=== PATIENT | female | born 1995 | race Two or more races ===

== ENCOUNTER 2023-03-04 11:07 | Emergency (ER) | payer MEDICAID ==
[~2023-03-04] VITALS: Ht 167.6 cm; Wt 75.8 kg
[2023-03-04 11:39] VITALS: BP 136/76
[2023-03-04 11:48] LABS: Urine Bacteria NONE SEEN /hpf (None Seen); Urine Blood Negative /uL (Negative); Urine Mucus FEW (None Seen); Urine Specific Gravity 1.027 (1.001-1.035); Urine WBC <1 /hpf (0 - 5)
[2023-03-04 12:41] LABS: Basophils # (auto) 0.1 10 ^3/uL (0-0.2); Basophils % (auto) 1.1 % (0.0-2.0); Eosinophils # (auto) 0.1 10 ^3/uL (0-0.8); Eosinophils % (auto) 1.9 % (0.0-7.0); Hematocrit 42.2 % (36.0-46.0); Lymphocytes # (auto) 1.9 10 ^3/uL (0.4-5.4); Lymphocytes % (auto) 29.8 % (10.0-50.0); Mean Corpuscular Hemoglobin 29.8 pg (28.0-32.0); Mean Corpuscular Hgb Conc. 33.2 g/dL (32.0-36.0); Mean Corpuscular Volume 89.7 fL (80.0-100.0); Monocytes # (auto) 0.4 10 ^3/uL (0-1.3); Monocytes % (auto) 5.9 % (0.0-12.0); Neutrophils # (auto) 3.9 10 ^3/uL (1.6-8.6); Neutrophils % (auto) 61.3 % (37.0-80.0); Red Cell Distribution Width 13.7 % (11.8-14.3); White Blood Cell 6.3 10^3/uL (4.4-10.8)
[2023-03-04] MEDS ORDERED: NAPR-746 PO (13:28)
== END 2023-03-04 13:50 | disposition home or self-care (01) ==
LOC: ER 11:07
DX: N93.8 Other specified abnormal uterine and vaginal bleeding (principal); N83.291 Other ovarian cyst, right side; Z32.02 Encounter for pregnancy test, result negative; Z98.51 Tubal ligation status; Z88.0 Allergy status to penicillin; Z88.6 Allergy status to analgesic agent
CPT/HCPCS: 36415; 76856; 81001; 81025; 85025

== ENCOUNTER 2023-06-14 07:29 | Emergency (ER) | payer SELFPAY ==
[~2023-06-14] VITALS: Ht 167.6 cm; Wt 81.6 kg
[2023-06-14 07:29] VITALS: BP 123/80; PULSE 76; RESP 16; TEMP 97.6; O2SAT 99
[~2023-06-14 07:29] MED LIST: NAPR-746 PO
[2023-06-14] MEDS ORDERED: ONDANSETRON ODT 4 MG TAB PO ONE (08:45)
[2023-06-14] MEDS ORDERED: KETOROLAC TROMETH 60MG/2ML VIAL IM ONE (08:45)
[2023-06-14 08:59] LABS: Urine Bacteria FEW /hpf (None Seen); Urine Blood 3+ /uL (Negative); Urine Budding Yeast MANY /hpf (None Seen); Urine Clarity HAZY (Clear); Urine Color Colorless (Yellow); Urine Protein, UAD 1+ (Negative); Urine Specific Gravity 1.013 (1.001-1.035); Urine Urobilinogen Normal (Negative); Urine WBC 524 /hpf (0 - 5); Urine WBC Clumps PRESENT /hpf (None Seen)
[2023-06-14] MEDS ORDERED: ZOFR4T PO (09:37)
[2023-06-14] MEDS ORDERED: IBUP-1455 PO (09:37)
[2023-06-14] MEDS ORDERED: LEVO750T8 PO (09:37)
== END 2023-06-14 09:52 | disposition home or self-care (01) ==
LOC: ER 07:29
DX: N12 Tubulo-interstitial nephritis, not specified as acute or chronic (principal); Z88.0 Allergy status to penicillin; Z88.5 Allergy status to narcotic agent; Z90.89 Acquired absence of other organs
CPT/HCPCS: 81001; 96372; 99283; J1885; Q0162

== ENCOUNTER 2024-04-19 06:00 | Day surgery (SDC) | payer MEDICAID ==
[2024-04-16 11:38] LABS: Basophils # (auto) 0 10 ^3/uL (0-0.2); Basophils % (auto) 0.4 % (0.0-2.0); Eosinophils # (auto) 0.1 10 ^3/uL (0-0.8); Hematocrit 44.6 % (36.0-46.0); Hemoglobin 14.6 g/dL (12.2-16.2); Lymphocytes # (auto) 1.8 10 ^3/uL (0.4-5.4); Mean Corpuscular Hemoglobin 29.8 pg (28.0-32.0); Mean Corpuscular Hgb Conc. 32.9 g/dL (32.0-36.0); Mean Corpuscular Volume 90.8 fL (80.0-100.0); Monocytes # (auto) 0.5 10 ^3/uL (0-1.3); Monocytes % (auto) 5.3 % (0.0-12.0); Neutrophils # (auto) 6.6 10 ^3/uL (1.6-8.6); Neutrophils % (auto) 73.3 % (37.0-80.0); Platelet Count (auto) 253 10^3/uL (140-450); Red Blood Cells 4.91 10^6/uL (4.0-5.20); Red Cell Distribution Width 13.2 % (11.8-14.3)
[2024-04-16 11:48] LABS: Urine Bacteria FEW /hpf (None Seen); Urine Blood 1+ /uL (Negative); Urine Clarity Turbid (Clear); Urine Color Colorless (Yellow); Urine Protein, UAD Negative (Negative); Urine Specific Gravity 1.012 (1.001-1.035); Urine Urobilinogen Normal (Negative); Urine WBC 7 /hpf (0 - 5); Urine pH 6.5 (5.0-9.0)
[2024-04-16 11:53] LABS: INR 1.03 (0.9-1.15); Partial Thromboplastin Time 29.3 SEC (24.5-34.5); Prothrombin Time 10.9 sec (9.3-11.8)
[2024-04-16 12:05] LABS: Alanine Aminotransferase 21 U/L (7-40); Alkaline Phosphatase 108 U/L (46-116); Anion Gap 6 (5-15); BUN/Creatinine Ratio 12.5 (10.0-20.0); Blood Urea Nitrogen 9 mg/dL (9-23); Calcium 9.7 mg/dL (8.7-10.4); Carbon Dioxide 26 mmol/L (20-30); Chloride 106 mmol/L (98-107); Glucose 95 mg/dL (74-106); Potassium 4.1 mmol/L (3.5-5.1); Sodium 138 mmol/L (136-145)
[2024-04-16 12:06] LABS: Albumin 4.8 g/dL (3.2-4.8); Aspartate Aminotransferase 16 U/L (13-40); Bilirubin, Total 0.6 mg/dL (0.2-1.0); Total Protein 7.1 g/dL (5.7-8.2)
[~2024-04-19] VITALS: Ht 167.6 cm; Wt 83.9 kg
[2024-04-19] MEDS ORDERED: ceFAZolin 2 GM/D5W50ml 0 ML IV ONE (06:21)
[2024-04-19] MEDS ORDERED: CLINDAMYCIN 600MG IV 50 ML IV ONE (06:27)
[2024-04-19 06:30] VITALS: TEMP 97.4
[2024-04-19] MEDS ORDERED: fentaNYL CITRATE 100 MCG/2 ML VL ONE (07:32)
[2024-04-19] MEDS ORDERED: MIDAZOLAM HCL 2MG/2ML 2ml VIAL (1mg/ml) ONE (07:32)
[2024-04-19] MEDS ORDERED: LIDOCAINE 2% (LOCAL ANESTH.) PF 5ml SDV ONE (07:45)
[2024-04-19] MEDS ORDERED: ONDANSETRON HCL 4 MG/2 ML VIAL ONE (07:45)
[2024-04-19] MEDS ORDERED: PROPOFOL 10 MG/ML 20 ML IV ONE (07:45)
[2024-04-19] MEDS ORDERED: ROCURONIUM 10MG/ML 10ML VIAL IV ONE (08:00)
[2024-04-19] MEDS ORDERED: IBUP-1455 PO (08:29)
[2024-04-19] MEDS ORDERED: HYDROmorphone HCL 2 MG/ML VL/or syr IV PRN ×2 (08:45)
[2024-04-19] MEDS ORDERED: ONDANSETRON HCL 4 MG/2 ML VIAL IV ONE (08:45)
[2024-04-19 09:35] VITALS: BP 107/71; PULSE 59; RESP 17; O2SAT 99
== END 2024-04-19 09:45 | disposition home or self-care (01) ==
LOC: SUR 06:00
PROVIDERS: ATTEND Obstetrics & Gynecology
DX: N92.0 Excessive and frequent menstruation with regular cycle (principal); G43.909 Migraine, unspecified, not intractable, without status migrainosus; Z88.0 Allergy status to penicillin; Z88.6 Allergy status to analgesic agent; Z98.890 Other specified postprocedural states; Z98.51 Tubal ligation status; Z88.8 Allergy status to other drugs, medicaments and biological substances
CPT/HCPCS: 36415; 58563; 80053; 81001; 81025; 84702; 85025; 85610; 85730; 86850; 86900; 86901; 88305; J2001; J2250; J2405; J2704; J3010; J3490

== ENCOUNTER 2025-04-15 07:29 | Emergency (ER) | payer MEDICAID ==
[~2025-04-15] VITALS: Ht 167.6 cm; Wt 73.0 kg
[~2025-04-15 07:29] MED LIST changes: +IBUP-1455 PO; -NAPR-746 PO
--- NOTE | 2025-04-15 08:18 | ED.PDOC ---
SOB-HPI HPI Comments 29 y/o F, with no prior medical history presents to the ED for CC of shortness of breath. Patient states, she has been experiencing worsening shortness of breath with associated substernal chest pain that radiates to her back sudden onset, yesterday at 0300. Patient reports, chest pain to worsen with inspiration and exhalation. Patient denies nasal congestion, cough, sore-throat, fever, or palpitations. No other symptoms or modifying factors present at this time. 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 Family History Family History: Reviewed,noncontributory to illness Social History Smoker: Non-Smoker Alcohol: Denies ETOH Use Drugs: Denies Drug Use Lives In: Home Constitutional: denies: chills, diaphoresis, fatigue, fever, malaise, sweats, weakness, others EENTM: denies: blurred vision, double vision, ear bleeding, ear discharge, ear drainage, ear pain, ear ringing, eye pain, eye redness, hearing loss, mouth pain, mouth swelling, nasal discharge, nose bleeding, nose congestion, nose pain, photophobia, tearing, throat pain, throat swelling, voice changes, others Respiratory: reports: shortness of breath; denies: cough, hemoptysis, orthopnea, SOB at rest, SOB with excertion, stridor, wheezing, others Cardiovascular: reports: chest pain; denies: dizzy spells, diaphoresis, Dyspnea on exertion, edema, irregular heart beat, left arm pain, lightheadedness, palpitations, PND, syncope, others Gastrointestinal: denies: abdomen distended, abdominal pain, blood streaked bowels, constipated, diarrhea, dysphagia, difficulty swallowing, hematemesis, melena, nausea, poor appetite, poor fluid intake, rectal bleeding, rectal pain, vomiting, others Genitourinary: denies: abnormal vagina bleeding, burning, dyspareunia, dysuria, flank pain, frequency, hematuria, incontinence, pain, , vagina discharge, urgency, others Neurological: denies: dizziness, fainting, headache, left sided numbness, left sided weakness, numbness, paresthesia, pre-existing deficit, right sided numbnes s, right sided weakness, seizure, speech problems, tingling, tremors, weakness, others Musculoskeletal: denies: back pain, gout, joint pain, joint swelling, muscle pain, muscle stiffness, neck pain, others Integumetry: denies: bruises, change in color, change in hair/nails, dryness, laceration, lesions, lumps, rash, wounds, others Allergic/Immunocompromised: denies: Difficulty Healing, Frequent Infections, Hives, Itching, others Hematologic/Lymphatic: denies: anemia, blood clots, easy bleeding, easy bruising, swollen glands, others Endocrine: denies: excessive hunger, excessive sweating, excessive thirst, excessive urination, flushing, intolerance to cold, intolerance to heat, unexplained weight gain, unexplained weight loss, others Psychiatric: denies: anxiety, bipolar disorder, depression, hopeless, panic disorder, schizophrenia, sleepless, suicidal, others All Other Systems: Reviewed and Negative Physical Exam General Appearance: No Apparent Distress, Normal HEENT: Normal ENT Inspection, Pharynx Normal Neck: Full Range of Motion, Non-Tender, Normal, Normal Inspection Respiratory: Chest Non-Tender, Lungs Clear, No Accessory Muscle Use, No Respiratory Distress, Normal Breath Sounds Cardiovascular: No Edema, No Murmur, No Gallop, Normal Peripheral Pulses, Regular Rate/Rhythm Breast Exam: Deferred Gastrointestinal: No Organomegaly, Non Tender, No Pulsatile Mass, Normal Bowel Sounds, Soft Genitalia: Deferred Pelvic: Deferred Rectal: Deferred Extremities: No calf tenderness, Normal capillary refill, Normal inspection, Normal range of motion, Non-tender, No pedal edema Musculoskeletal : Apperance: Normal Neurologic: Alert, gun striper II-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 Was a procedure done?: No Differential Dx Differential Diagnosis: Bronchitis, Pneumonia, Sinusitis, URI, Other (gastritis, GERD) X-Ray, Labs, Meds, VS Vital Signs Date Time Temp Pulse Resp B/P (MAP) Pulse Ox O2 Delivery O2 Flow Rate FiO2 04/15/25 09:12 67 18 95 Room Air* 0 21 04/15/25 09:08 68 98 98 Room Air 04/15/25 09:08 67 18 116/72 (87) 98 04/15/25 07:37 64 04/15/25 07:30 97.9 75 15 136/86 100 97.9 Lab Test 04/15/25 09:16 04/15/25 08:08 Range/Units Troponin I High Sensitivity < 3 L < 3 L </=34 ng/L White Blood Count 6.4 4.4-10.8 10^3/uL Red Blood Count 4.46 4.0-5.20 10^6/uL Hemoglobin 13.9 12.2-16.2 g/dL Hematocrit 40.1 36.0-46.0 % Mean Corpuscular Volume 90.1 80.0-100.0 fL Mean Corpuscular Hemoglobin 31.1 28.0-32.0 pg Mean Corpuscular Hemoglobin Concent 34.6 32.0-36.0 g/dL Red Cell Distribution Width 13.4 11.8-14.3 % Platelet Count 214 140-450 10^3/uL Mean Platelet Volume 9.1 6.9-10.8 fL Neutrophils (%) (Auto) 73.5 37.0-80.0 % Lymphocytes (%) (Auto) 18.9 10.0-50.0 % Monocytes (%) (Auto) 4.1 0.0-12.0 % Eosinophils (%) (Auto) 3.0 0.0-7.0 % Basophils (%) (Auto) 0.5 0.0-2.0 % Neutrophils # (Auto) 4.7 1.6-8.6 10 ^3/uL Lymphocytes # (Auto) 1.2 0.4-5.4 10 ^3/uL Monocytes # (Auto) 0.3 0-1.3 10 ^3/uL Eosinophils # (Auto) 0.2 0-0.8 10 ^3/uL Basophils # (Auto) 0 0-0.2 10 ^3/uL Nucleated Red Blood Cells 0.0 % Sodium Level 143 136-145 mmol/L Potassium Level 3.9 3.5-5.1 mmol/L Chloride Level 107 98-107 mmol/L Carbon Dioxide Level 27 20-31 mmol/L Anion Gap 9 5-15 Blood Urea Nitrogen 10 9-23 mg/dL Creatinine 0.69 0.550-1.02 mg/dL Glomerular Filtration Rate Calc 121 >90 mL/min BUN/Creatinine Ratio 14.5 10.0-20.0 Serum Glucose 91 74-106 mg/dL Calcium Level 10.0 8.7-10.4 mg/dL Current Medications Medications (Trade) Dose Ordered Sig/Romulo Route Start Time Stop Time Status Last Admin Famotidine (Pepcid Tablet) 20 mg ONCE ONCE PO 04/15/25 08:00 04/15/25 08:01 DC 04/15/25 09:12 Al Hydrox/Mg Hydrox/Simethicone (Maalox Plus) 30 ml ONCE ONCE PO 04/15/25 08:00 04/15/25 08:01 DC 04/15/25 09:12 [place] [id number] Ph: [phone] DIAGNOSTIC IMAGING Diagnostic Imaging Report : [id number] Signed PATIENT: LA ARBOLEDA ACCT: [id number] UNIT: [id number] : 1995 LOC: ER ROOM / BED: / AGE / SEX: 29 / F ADM STATUS: REG ER SERVICE [id number] ORDERING PHYSICIAN: PABLO JAQUEZ MD PROCEDURE(s): CXRP - CHEST PORTABLE REASON: sob ORDER NUMBER(s): [id number], ACCESSION NUMBER(s): [id number] EXAM: XY CHEST PORTABLE Indication: sob Technique: Single frontal view of the chest was obtained Comparison: None FINDINGS: Lines and Tubes: None Lungs: No focal consolidation. Pleura: No effusion. No pneumothorax. Cardiomediastinal contours: Unremarkable Bones: No acute osseous abnormality. IMPRESSION: No acute cardiopulmonary disease. ATED BY: RYAN PRESTON MD DICTATED DATE/TIME: 04/15/25856 SIGNED BY: RYAN PRESTON MD SIGNED DATE/TIME: 04/15/25856 CC: Time of 1ST Reevaluation: 08:15 Reevaluation 1ST: Unchanged Patient Education/Counseling: Diagnosis, Treatment Family Education/Counseling: No Family Present SEPSIS Sepsis Screen Date sepsis recognized/suspect: Apr 15, 2025 Time Sepsis recognized/suspect: 731 Recent Procedure: No On Antibiotic Therapy: No Respiratory Rate >20: No Heart Rate >90: No Temp<36 C (96.8 F) or >38.3 C: No SBP <90 or MAP <65 mmHG: No New Acute Mental Status Change: No Is the patient on CPAP, BIPAP,: No Physician Orders Electrocardigram (04/15/25 07:41) Chest Portable (04/15/25 07:59) Troponin-I Hs (04/15/25 10:59) Electrocardigram (04/15/25 08:59) Electrocardigram (04/15/25 10:59) Vital Signs Date Time Temp Pulse Resp B/P (MAP) Pulse Ox O2 Delivery O2 Flow Rate FiO2 04/15/25 09:12 67 18 95 Room Air* 0 21 04/15/25 09:08 68 98 98 Room Air 04/15/25 09:08 67 18 116/72 (87) 98 04/15/25 07:37 64 04/15/25 07:30 97.9 75 15 136/86 100 97.9 Laboratory Tests Test 04/15/25 08:08 White Blood Count 6.4 10^3/uL (4.4-10.8) Medications Medications Dose Ordered Sig/Romulo Route Start Time Stop Time Status Last Admin Dose Admin Al Hydrox/Mg Hydrox/Simethicone 30 ml ONCE ONCE PO 04/15/25 08:00 04/15/25 08:01 DC 04/15/25 09:12 Famotidine 20 mg ONCE ONCE PO 04/15/25 08:00 04/15/25 08:01 DC 04/15/25 09:12 Departure 1 Departure Time of Disposition: 11:07 (Patient presented with chest pain that was concerning for possible STEMI, ACS, PE, Pneumonia, Muscle Strain, COPD, Dissection. Data: 1. I ordered and reviewed the result of at least 3 labs including a CBC, BMP, and Troponin. 2. I independently interpreted the following tests: EKG which shows normal sinus rhythm and Chest X-ray which shows a benign chest.Risk:This patient presented with a high risk of morbidity due to further diagnostic testing or treatment and may suffer from an acute cardiac or respiratory disorder. After review of all the data patient is unlikely to have a pe , dissection, and is low risk for acs. Patient is stable at this time.Workup so far is benign and patient will be discharged with outpatient followup. ) Impression: Primary Impression: Shortness of breath Disposition: HOME / SELF CARE / HOMELESS Condition: Stable Additional Instructions: Your workup today was benign including normal labs and normal chest x-ray. You can take Motrin as needed for pain. You should follow up with your regular doctor within 1 week. You should stay well rested and well hydrated. If your symptoms worsen or you have any other concerns please return to the emergency room. Critical Care Note Critical Care Time?: No Stability Stability form required: No Heart Score Heart Score: Heart Score Response (Comments) Value History N/A 0 EKG N/A 0 Age N/A 0 Risk Factors N/A 0 Troponin N/A 0 Total 0 I personally scribed for PABLO JAQUEZ MD ([email or web address]) on 04/15/25 at 08:18. Electronically submitted by Jessika Singleton ([email or web address]). I personally scribed for PABLO JAQUEZ MD ([email or web address]) on 04/15/25 at 09:22. Electronically submitted by Jessika Singleton ([email or web address]). PABLO JAQUEZ MD Apr 15, 2025 08:18
[2025-04-15 08:41] LABS: Hematocrit 40.1 % (36.0-46.0); Hemoglobin 13.9 g/dL (12.2-16.2); Mean Corpuscular Hemoglobin 31.1 pg (28.0-32.0); Mean Corpuscular Volume 90.1 fL (80.0-100.0); Nucleated Red Blood Cells % 0.0 %
[2025-04-15 08:45] LABS: Potassium 3.9 mmol/L (3.5-5.1); Sodium 143 mmol/L (136-145)
[2025-04-15 08:46] LABS: Anion Gap 9 (5-15); Calcium 10.0 mg/dL (8.7-10.4); Carbon Dioxide 27 mmol/L (20-31)
[2025-04-15 08:51] LABS: BUN/Creatinine Ratio 14.5 (10.0-20.0); Blood Urea Nitrogen 10 mg/dL (9-23); Glucose 91 mg/dL (74-106)
[2025-04-15 08:52] LABS: Chloride 107 mmol/L (98-107)
--- NOTE | 2025-04-15 09:00 | DVH ---
EXAM: XY CHEST PORTABLE Indication: sob Technique: Single frontal view of the chest was obtained Comparison: None FINDINGS: Lines and Tubes: None Lungs: No focal consolidation. Pleura: No effusion. No pneumothorax. Cardiomediastinal contours: Unremarkable Bones: No acute osseous abnormality. IMPRESSION: No acute cardiopulmonary disease.
[2025-04-15 09:12] VITALS: PULSE 67; RESP 18; O2SAT 95
[2025-04-15] MEDS: MAALOX PLUS or MAALOX 30 ML PO ONE (09:12)
[2025-04-15] MEDS: FAMOTIDINE 20 MG TAB PO ONE (09:12)
[2025-04-15 13:20] VITALS: BP 110/71; PULSE 63; RESP 13; TEMP 98.4; O2SAT 100
--- NOTE | 2025-04-15 14:36 | ECG ---
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
== END 2025-04-15 13:25 | disposition home or self-care (01) ==
LOC: ER 07:29
DX: R06.02 Shortness of breath (principal); Z98.51 Tubal ligation status
CPT/HCPCS: 36415; 71045; 80048; 84484; 85025; 93005

== ENCOUNTER 2025-06-06 12:50 | Emergency (ER) | payer MEDICAID ==
[~2025-06-06] VITALS: Ht 165.1 cm; Wt 71.9 kg
--- NOTE | 2025-06-06 13:06 | ED.PDOC ---
GI ASSESSMENT HPI Comments A 29 YEAR OLD FEMALE PRESENTS TO THE ED WITH COMPLAINT OF EPIGASTRIC PAIN. PATIENT STATES SHE HAS BEEN EXPERIENCING EPIGASTRIC PAIN THAT RADIATES TO HER MIDDLE BACK OFF AND ON FOR THE PAST 1 MONTH WITH HER PAIN STARTING AGAIN 2 DAYS AGO. PATIENT NOTES EATING INCREASES HER PAIN. THE PAIN LEVEL IS 8/10 AT THIS TIME. PATIENT ALSO NOTES THAT SHE HAS A OCCASIONAL NAUSEA WITH HER PAIN. PATIENT DENIES FEVER, CHILLS, SHORTNESS OF BREATH, CHEST PAIN, VOMITING, HEADACHE, OR OTHER COMPLAINTS. NO OTHER SYMPTOMS OR MODIFYING FACTORS AT THIS TIME. PATIENT IS ALERT, ORIENTED X 4, AND HAS STEADY GAIT. Chief Complaint: Abdominal Pain Time Seen by MD: 12:55 Primary Care Provider: [facility] Reviewed Notes: Nurses Notes, Medications, Allergies Allergies: Coded Allergies: Acetaminophen (Verified Allergy, Unknown, 03/04/23) Codeine (Verified Allergy, Unknown, 03/04/23) Penicillins (Verified Allergy, Unknown, 03/04/23) Home Meds Active Scripts Ibuprofen Micronized (Ibuprofen) 800 Mg Tab, 800 MG PO Q8HPRN PRN, #30 TAB Prov:LEAHRUBI Bautista DO 04/19/24 Information Source: Patient Mode of Arrival: Ambulatory Timing: Days Duration: Since onset, Days Prehospital treatment: None Quality: Aching, Cramping, Sharp, Colicky Vomitus: None Stool: Normal Severity: Moderate Recent: None Recent Hx of: None Pain Location: Epigastric Modifying Factors: Nothing Associated sign and symptoms: Nausea, Abdominal Pain Past Medical History PAST MEDICAL HISTORY: Denies Surgical History: Tubal Ligation 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 NURSING ASSISTANT Hx Family History Family History: Reviewed,noncontributory to illness Social History Smoker: Non-Smoker Alcohol: Denies ETOH Use Drugs: Denies Drug Use Lives In: Home Constitutional: reports: others (ANXIOUS ); denies: chills, diaphoresis, fatigue, fever, malaise, sweats, weakness EENTM: denies: blurred vision, double vision, ear bleeding, ear discharge, ear drainage, ear pain, ear ringing, eye pain, eye redness, hearing loss, mouth pain, mouth swelling, nasal discharge, nose bleeding, nose congestion, nose pain, photophobia, tearing, throat pain, throat swelling, voice changes, others Respiratory: denies: cough, hemoptysis, orthopnea, SOB at rest, shortness of breath, SOB with excertion, stridor, wheezing, others Cardiovascular: denies: chest pain, dizzy spells, diaphoresis, Dyspnea on exertion, edema, irregular heart beat, left arm pain, lightheadedness, p alpitations, PND, syncope, others Gastrointestinal: reports: abdominal pain, nausea; denies: abdomen distended, blood streaked bowels, constipated, diarrhea, dysphagia, difficulty swallowing, hematemesis, melena, poor appetite, poor fluid intake, rectal bleeding, rectal pain, vomiting, others Genitourinary: denies: abnormal vagina bleeding, burning, dyspareunia, dysuria, flank pain, frequency, hematuria, incontinence, pain, , vagina discharge, urgency, others Neurological: denies: dizziness, fainting, headache, left sided numbness, left sided weakness, numbness, paresthesia, pre-existing deficit, right sided numbness, right sided weakness, seizure, speech problems, tingling, tremors, weakness, others Musculoskeletal: reports: back pain; denies: gout, joint pain, joint swelling, muscle pain, muscle stiffness, neck pain, others Integumetry: denies: bruises, change in color, change in hair/nails, dryness, laceration, lesions, lumps, rash, wounds, others Allergic/Immunocompromised: denies: Difficulty Healing, Frequent Infections, Hives, Itching, others Hematologic/Lymphatic: denies: anemia, blood clots, easy bleeding, easy bruising, swollen glands, others Endocrine: denies: excessive hunger, excessive sweating, excessive thirst, excessive urination, flushing, intolerance to cold, intolerance to heat, unexplained weight gain, unexplained weight loss, others Psychiatric: denies: anxiety, bipolar disorder, depression, hopeless, panic disorder, schizophrenia, sleepless, suicidal, others All Other Systems: Reviewed and Negative Physical Exam General Appearance: Moderate Distress, Other (ANXIOUS ) HEENT: Normal ENT Inspection, PERRL/EOMI, Pharynx Normal, TMs Normal Neck: Full Range of Motion, Non-Tender, Normal, Normal Inspection Respiratory: Chest Non-Tender, Lungs Clear, No Accessory Muscle Use, No Respiratory Distress, Normal Breath Sounds Cardiovascular: No Edema, No JVD, No Murmur, No Gallop, Normal Peripheral Pulses, Regular Rate/Rhythm Breast Exam: Deferred Gastrointestinal: Epigastric, No Organomegaly, No Pulsatile Mass, Normal Bowel Sounds, Soft, Tenderness (ON EPIGASTRIC REGION WITH GUARDING, NO REBOUND TENDERNESS. 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 Was a procedure done?: No GI differential Dx Differential Diagnosis: Appendicitis, Cholecystitis, Constipation, Diverticular disease, Gastritis/PUD, Gastroenteritis, Pancreatitis, UTI, Dehydration, Kidney Stone X-Ray, Labs, Meds, VS Vital Signs Date Time Temp Pulse Resp B/P (MAP) Pulse Ox O2 Delivery O2 Flow Rate FiO2 06/06/25 12:59 99 18 100 Room Air 06/06/25 12:59 97.4 99 16 144/97 (113) 100 97.4 06/06/25 12:51 97.4 99 16 144/97 100 97.4 Lab Test 06/06/25 13:43 06/06/25 13:22 Range/Units White Blood Count 7.5 4.4-10.8 10^3/uL Red Blood Count 4.40 4.0-5.20 10^6/uL Hemoglobin 13.6 12.2-16.2 g/dL Hematocrit 39.8 36.0-46.0 % Mean Corpuscular Volume 90.3 80.0-100.0 fL Mean Corpuscular Hemoglobin 30.9 28.0-32.0 pg Mean Corpuscular Hemoglobin Concent 34.3 32.0-36.0 g/dL Red Cell Distribution Width 13.0 11.8-14.3 % Platelet Count 240 140-450 10^3/uL Mean Platelet Volume 8.6 6.9-10.8 fL Neutrophils (%) (Auto) 70.4 37.0-80.0 % Lymphocytes (%) (Auto) 19.6 10.0-50.0 % Monocytes (%) (Auto) 4.6 0.0-12.0 % Eosinophils (%) (Auto) 4.9 0.0-7.0 % Basophils (%) (Auto) 0.5 0.0-2.0 % Neutrophils # (Auto) 5.3 1.6-8.6 10 ^3/uL Lymphocytes # (Auto) 1.5 0.4-5.4 10 ^3/uL Monocytes # (Auto) 0.3 0-1.3 10 ^3/uL Eosinophils # (Auto) 0.4 0-0.8 10 ^3/uL Basophils # (Auto) 0 0-0.2 10 ^3/uL Nucleated Red Blood Cells 0.0 % Sodium Level 141 136-145 mmol/L Potassium Level 4.1 3.5-5.1 mmol/L Chloride Level 104 98-107 mmol/L Carbon Dioxide Level 25 20-31 mmol/L Anion Gap 12 5-15 Blood Urea Nitrogen 8 L 9-23 mg/dL Creatinine 0.67 0.550-1.02 mg/dL Glomerular Filtration Rate Calc 122 >90 mL/min BUN/Creatinine Ratio 11.9 10.0-20.0 Serum Glucose 88 74-106 mg/dL Calcium Level 9.7 8.7-10.4 mg/dL Total Bilirubin 3.1 H 0.2-1.0 mg/dL Aspartate Amino Transferase (AST) 345 H 13-40 U/L Alanine Aminotransferase (ALT) 499 H 7-40 U/L Alkaline Phosphatase 160 H 46-116 U/L Total Protein 6.5 5.7-8.2 g/dL Albumin 4.3 3.2-4.8 g/dL Lipase 35 12-53 U/L Urine Color [place] H Yellow Urine Clarity Clear Clear Urine pH 6.5 5.0-9.0 Urine Specific [place] 1.020 1.001-1.035 Urine Protein Negative Negative Urine Ketones Trace Negative Urine Blood Negative Negative /uL Urine Nitrite Negative Negative Urine Bilirubin 1+ H Negative Urine Urobilinogen Normal Negative mg/dL Urine Leukocyte Esterase Negative Negative /uL Urine RBC 1 0 - 4 /hpf Urine Microscopic WBC 1 0-5 /HPF Urine Squamous Epithelial Cells Few <5 /hpf Urine Calcium Oxalate Crystals Few None Seen Urine Bacteria Few H None Seen /hpf Urine Glucose Normal Normal mg/dL Urine Test Negative Negative Current Medications Medications (Trade) Dose Ordered Sig/Romulo Route Start Time Stop Time Status Last Admin Ketorolac Tromethamine (Toradol Injection) 60 mg ONCE ONCE IM 06/06/25 13:15 06/06/25 13:16 DC 06/06/25 13:17 Sodium Chloride 1,000 ml @ 1,000 mls/hr Q1H ONCE IV 06/06/25 14:00 06/06/25 14:59 DC 06/06/25 14:12 INDICATION: EPIGASTRIC PAIN TO MIDDLE BACK TECHNIQUE: Multiple real-time sonographic images of the abdomen were obtained. COMPARISON: None FINDINGS: The liver is homogenous in echogenicity. The liver measures 18.1 cm. No intrahepatic biliary ductal dilatation is noted. The gallbladder wall measures 0.12 cm and is unremarkable. Mobile gallstones are noted in the gallbladder. The common duct measures 0.99 cm which is mildly dilated. No pericholecystic fluid is noted. The right kidney measures 11.2cm. No hydronephrosis. The pancreas is not well visualized due to obscuration from bowel gas. IMPRESSION: 1. Gallstones, dilated common bile duct, positive sonographic Trotter's sign. 2. Findings suggest acute cholecystitis. ATED BY: JIMMY MCALLISTER Jr., DO DICTATED DATE/TIME: 06/06/251345 SIGNED BY: JIMMY MCALLISTER Jr., SIGNED DATE/TIME: 06/06/251345 CC: The general surgeon came down and evaluate the patient. After examination, he determined that the patient has choledocholithiasis. At this time, the patient will be transferred to higher level of care We spoke with the physician at [facility] and he has accepted the patient for transfer We have discussed the findings with the patient and she is in agreement The patient's diagnosis is choledocholithiasis The patient is transferred X-Ray, Labs, Meds, VS Comment EXTERNAL MEDICAL RECORDS REVIEWED: [NONE] INDEPENDENT HISTORIANS: [NONE] SOCIAL DETERMINANTS OF HEALTH: [NONE] LABS ORDERED: CBC, CMP, UA, LIPASE REVIEWED AND INTERPRETED RESULTS: TBI 3.10, AST 345, ALT 499, ALP 160 IMAGING ORDERED: US ABDOMEN TREATMENTS ORDERED: TORADOL 60 MG IM, 0.9 NS 1L, ZOFRAN 4MG IVP AND ROCEPHIN 1GM IVPB PROCEDURES PERFORMED: NONE CRITICAL CARE TIME: NONE I HAVE DISCUSSED THE PATIENT WITH THE ATTENDING PHYSICIAN DR. PERRY AND HE AGREES WITH THE PATIENT'S PLAN OF CARE. UPON MY PHYSICAL EXAMINATION, THE PATIENT HAD GUARDING NOTED UPON PALPATION TO HER EPIGASTRIC ABDOMEN AND WAS TROTTER'S SIGN POSITIVE UPON PALPATION, BUT HAD NO REBOUND TENDERNESS NOTED UPON PALPATION. PATIENT'S ULTRASOUND REVEALED CHOLELITHIASIS WITH SIGNS SUGGESTING ACUTE CHOLECYSTITIS. DUE TO THE PATIENT'S ULTRASOUND RESULTS REVEALING ACUTE CHOLECYSTITIS, I HAVE DETERMINED THE PATIENT NEEDS TO BE ADMITTED FOR FURTHER TREATMENT AND EVALUATION. ON-CALL HOSPITALIST WILL BE CONTACTED FOR ADMISSION OF THIS PATIENT. Images Reviewed?: Images reviewed and evaluated by me Time of 1ST Reevaluation: 14:22 Reevaluation 1ST: Unchanged Patient Education/Counseling: Diagnosis, Treatment, Prognosis Family Education/Counseling: Diagnosis, Treatment, Prognosis SEPSIS Sepsis Screen Date sepsis recognized/suspect: Jun 06, 2025 Time Sepsis recognized/suspect: 1253 Recent Procedure: No On Antibiotic Therapy: No Respiratory Rate >20: No Heart Rate >90: Yes Temp<36 C (96.8 F) or >38.3 C: No SBP <90 or MAP <65 mmHG: No New Acute Mental Status Change: No Is the patient on CPAP, BIPAP,: No Physician Orders Gallbladder (06/06/25 13:02) Vital Signs Date Time Temp Pulse Resp B/P (MAP) Pulse Ox O2 Delivery O2 Flow Rate FiO2 06/06/25 12:59 99 18 100 Room Air 06/06/25 12:59 97.4 99 16 144/97 (113) 100 97.4 06/06/25 12:51 97.4 99 16 144/97 100 97.4 Laboratory Tests Test 06/06/25 13:43 White Blood Count 7.5 10^3/uL (4.4-10.8) Medications Medications Dose Ordered Sig/Romulo Route Start Time Stop Time Status Last Admin Dose Admin Ketorolac Tromethamine 60 mg ONCE ONCE IM 06/06/25 13:15 06/06/25 13:16 DC 06/06/25 13:17 Sodium Chloride 1,000 ml @ 1,000 mls/hr Q1H ONCE IV 06/06/25 14:00 06/06/25 14:59 DC 06/06/25 14:12 Departure 1 Departure Time of Disposition: 14:30 Impression: Primary Impression: Elevated liver enzymes Additional Impression: Choledocholithiasis Disposition: ADMITTED INPATIENT Condition: Serious Critical Care Note Critical Care Time?: No Stability Stability form required: Yes Stable for transfer: Intended for transfer, To designated facility Heart Score Heart Score: Heart Score Response (Comments) Value History N/A 0 EKG N/A 0 Age N/A 0 Risk Factors N/A 0 Troponin N/A 0 Total 0 I personally scribed for ERIK MARKHAM ([email or web address]) on 06/06/25 at 13:06. Electronically submitted by Julio César Victor ([email or web address]). I personally scribed for ERIK MARKHAM ([email or web address]) on 06/06/25 at 13:53. Electronically submitted by Julio César Victor (Nix Hydra). ERIK MARKHAM Jun 06, 2025 13:06 MUKESH PERRY MD Jun 06, 2025 19:58
[2025-06-06] MEDS: KETOROLAC TROMETH 60MG/2ML VIAL IM ONE (13:17)
[2025-06-06 13:31] LABS: Urine Protein, UAD Negative (Negative)
--- NOTE | 2025-06-06 13:48 | DVH ---
INDICATION: EPIGASTRIC PAIN TO MIDDLE BACK TECHNIQUE: Multiple real-time sonographic images of the abdomen were obtained. COMPARISON: None FINDINGS: The liver is homogenous in echogenicity. The liver measures 18.1 cm. No intrahepatic bilia ry ductal dilatation is noted. The gallbladder wall measures 0.12 cm and is unremarkable. Mobile gallstones are noted in the gallb ladder. The common duct measures 0.99 cm which is mildly dilated. No pericholecystic fluid is note d. The right kidney measures 11.2cm. No hydronephrosis. The pancreas is not well visualized due to obscuration from bowel gas. IMPRESSION: 1. Gallstones, dilated common bile duct, positive sonographic Trotter's sign. 2. Findings suggest acute cholecystitis.
[2025-06-06 13:53] LABS: Hematocrit 39.8 % (36.0-46.0); Hemoglobin 13.6 g/dL (12.2-16.2); Mean Corpuscular Hemoglobin 30.9 pg (28.0-32.0); Mean Corpuscular Volume 90.3 fL (80.0-100.0); Nucleated Red Blood Cells % 0.0 %
[2025-06-06] MEDS: SODIUM CHLORIDE 0.9% 1,000 ML IV ONE ×2 (14:12→17:39)
[2025-06-06 14:14] LABS: Albumin 4.3 g/dL (3.2-4.8); Anion Gap 12 (5-15); BUN/Creatinine Ratio 11.9 (10.0-20.0); Calcium 9.7 mg/dL (8.7-10.4); Carbon Dioxide 25 mmol/L (20-31); Chloride 104 mmol/L (98-107); Glucose 88 mg/dL (74-106); Lipase 35 U/L (12-53); Potassium 4.1 mmol/L (3.5-5.1); Sodium 141 mmol/L (136-145); Total Protein 6.5 g/dL (5.7-8.2)
[2025-06-06 14:15] LABS: Alanine Aminotransferase 499 U/L (7-40); Alkaline Phosphatase 160 U/L (46-116); Bilirubin, Total 3.1 mg/dL (0.2-1.0); Blood Urea Nitrogen 8 mg/dL (9-23)
[2025-06-06] MEDS ORDERED: MORPHINE SULFATE INJ 2 MG/ml SYRG IV PRN (15:15)
--- NOTE | 2025-06-06 15:41 | DVH ---
CHEST RADIOGRAPH Indication: preop Technique: Single frontal view of the chest was obtained Comparison: XY CHEST PORTABLE on DOS: 04/15/25 FINDINGS: Lines and Tubes: None Lungs: No focal consolidation. Pleura: No effusion. No pneumothorax. Cardiomediastinal contours: Unremarkable Bones: Mild dextroscoliosis midthoracic spine IMPRESSION: 1. No acute cardiopulmonary disease. 2. No significant change from 04/15/2025.
[2025-06-06 16:02] LABS: INR 1.05 (0.9-1.15); Partial Thromboplastin Time 27.4 SEC (24.5-34.5); Prothrombin Time 11.1 sec (9.3-11.8)
--- NOTE | 2025-06-06 16:43 | DVHHP2 ---
History of Present Illness Reason for Visit: Abdominal pain History of Present Illness 29-year-old female presents for evaluation of abdominal pain. Patient reports a one month history of intermittent epigastric abdominal pain that is subsides. She states that two days ago the pain became more intense and constant. She describes it as sharp with radiation to her back. Reports having nausea. No fever or chills. No diarrhea. Past Medical History Denies Past Surgical History Tubal ligation Family History Noncontributory Smoke: No ALCOHOL: none Drugs: None Lives: with Family Review of Systems Review of Systems Review of systems are currently negative otherwise addressed in HPI. Allergies: Coded Allergies: Acetaminophen (Verified Allergy, Unknown, 03/04/23) Codeine (Verified Allergy, Unknown, 03/04/23) Penicillins (Verified Allergy, Unknown, 03/04/23) Medications Current Medications Medications Dose Ordered Sig/Romulo Route Start Time Stop Time Status Last Admin Dose Admin Ceftriaxone Sodium 50 ml @ 100 mls/hr DAILY@09 IV 06/07/25 09:00 UNV Metronidazole 100 ml @ 100 mls/hr Q8HR IV 06/06/25 15:15 UNV Pantoprazole Sodium 40 mg DAILY IV 06/07/25 10:00 UNV Ondansetron HCl 4 mg Q4HP PRN IV 06/06/25 15:15 UNV Morphine Sulfate 2 mg Q4HPRN PRN IV 06/06/25 15:15 UNV Exam Vital Signs Vital Signs Date Time Temp Pulse Resp B/P (MAP) Pulse Ox O2 Delivery O2 Flow Rate FiO2 06/06/25 12:59 99 18 100 Room Air 06/06/25 12:59 97.4 144/97 (113) 97.4 Exam Gen: 29-year-old female in mild distress Skin: Warm, dry, normal color and texture, no rash. HEENT: Normocephalic atraumatic, mucous membranes moist and pink. Neck: Cervical and supraclavicular nodes normal without enlargement, trachea is midline, thyroid gland is normal without masses. Pulmonary: Clear to auscultation and percussion bilaterally. Cardiac: Regular rate and rhythm. No murmur Abdomen: Soft, epigastric tenderness, nondistended, bowel sounds present all 4 quadrants, no guarding, no rigidity, no organomegaly. Extremities: No cyanosis, clubbing, no edema Neuro: Cranial nerves II through XII grossly intact, normal affect and speech, no focal motor deficits. Labs/Xrays ORDERING PHYSICIAN: ERIK MARKHAM PROCEDURE(s): GBUS - GALLBLADDER REASON: EPIGASTRIC PAIN TO MIDDLE BACK ORDER NUMBER(s): [id number], ACCESSION NUMBER(s): [id number] INDICATION: EPIGASTRIC PAIN TO MIDDLE BACK TECHNIQUE: Multiple real-time sonographic images of the abdomen were obtained. COMPARISON: None FINDINGS: The liver is homogenous in echogenicity. The liver measures 18.1 cm. No intrahepatic biliary ductal dilatation is noted. The gallbladder wall measures 0.12 cm and is unremarkable. Mobile gallstones are noted in the gallbladder. The common duct measures 0.99 cm which is mildly dilated. No pericholecystic fluid is noted. The right kidney measures 11.2cm. No hydronephrosis. The pancreas is not well visualized due to obscuration from bowel gas. IMPRESSION: 1. Gallstones, dilated common bile duct, positive sonographic Trotter's sign. 2. Findings suggest acute cholecystitis. RING PHYSICIAN: DONA PAZ PROCEDURE(s): CXR1 - CHEST XRAY 1 VIEW REASON: preop ORDER NUMBER(s): [id number], ACCESSION NUMBER(s): [id number] CHEST RADIOGRAPH Indication: preop Technique: Single frontal view of the chest was obtained Comparison: XY CHEST PORTABLE on DOS: 04/15/25 FINDINGS: Lines and Tubes: None Lungs: No focal consolidation. Pleura: No effusion. No pneumothorax. Cardiomediastinal contours: Unremarkable Bones: Mild dextroscoliosis midthoracic spine IMPRESSION: 1. No acute cardiopulmonary disease. 2. No significant change from 04/15/2025. Labs Test 06/06/25 15:25 06/06/25 13:43 06/06/25 13:22 Range/Units Prothrombin Time 11.1 9.3-11.8 sec Prothrombin Time INR 1.05 0.9-1.15 Activated Partial Thromboplast Time 27.4 24.5-34.5 SEC White Blood Count 7.5 4.4-10.8 10^3/uL Red Blood Count 4.40 4.0-5.20 10^6/uL Hemoglobin 13.6 12.2-16.2 g/dL Hematocrit 39.8 36.0-46.0 % Mean Corpuscular Volume 90.3 80.0-100.0 fL Mean Corpuscular Hemoglobin 30.9 28.0-32.0 pg Mean Corpuscular Hemoglobin Concent 34.3 32.0-36.0 g/dL Red Cell Distribution Width 13.0 11.8-14.3 % Platelet Count 240 140-450 10^3/uL Mean Platelet Volume 8.6 6.9-10.8 fL Neutrophils (%) (Auto) 70.4 37.0-80.0 % Lymphocytes (%) (Auto) 19.6 10.0-50.0 % Monocytes (%) (Auto) 4.6 0.0-12.0 % Eosinophils (%) (Auto) 4.9 0.0-7.0 % Basophils (%) (Auto) 0.5 0.0-2.0 % Neutrophils # (Auto) 5.3 1.6-8.6 10 ^3/uL Lymphocytes # (Auto) 1.5 0.4-5.4 10 ^3/uL Monocytes # (Auto) 0.3 0-1.3 10 ^3/uL Eosinophils # (Auto) 0.4 0-0.8 10 ^3/uL Basophils # (Auto) 0 0-0.2 10 ^3/uL Nucleated Red Blood Cells 0.0 % Sodium Level 141 136-145 mmol/L Potassium Level 4.1 3.5-5.1 mmol/L Chloride Level 104 98-107 mmol/L Carbon Dioxide Level 25 20-31 mmol/L Anion Gap 12 5-15 Blood Urea Nitrogen 8 L 9-23 mg/dL Creatinine 0.67 0.550-1.02 mg/dL Glomerular Filtration Rate Calc 122 >90 mL/min BUN/Creatinine Ratio 11.9 10.0-20.0 Serum Glucose 88 74-106 mg/dL Calcium Level 9.7 8.7-10.4 mg/dL Total Bilirubin 3.1 H 0.2-1.0 mg/dL Aspartate Amino Transferase (AST) 345 H 13-40 U/L Alanine Aminotransferase (ALT) 499 H 7-40 U/L Alkaline Phosphatase 160 H 46-116 U/L Total Protein 6.5 5.7-8.2 g/dL Albumin 4.3 3.2-4.8 g/dL Lipase 35 12-53 U/L Urine Color [place] H Yellow Urine Clarity Clear Clear Urine pH 6.5 5.0-9.0 Urine Specific [place] 1.020 1.001-1.035 Urine Protein Negative Negative Urine Ketones Trace Negative Urine Blood Negative Negative /uL Urine Nitrite Negative Negative Urine Bilirubin 1+ H Negative Urine Urobilinogen Normal Negative mg/dL Urine Leukocyte Esterase Negative Negative /uL Urine RBC 1 0 - 4 /hpf Urine Microscopic WBC 1 0-5 /HPF Urine Squamous Epithelial Cells Few <5 /hpf Urine Calcium Oxalate Crystals Few None Seen Urine Bacteria Few H None Seen /hpf Urine Glucose Normal Normal mg/dL Urine Test Negative Negative SEPSIS Sepsis Screen Date sepsis recognized/suspect: Jun 06, 2025 Time Sepsis recognized/suspect: 1253 Recent Procedure: No On Antibiotic Therapy: No Respiratory Rate >20: No Heart Rate >90: Yes Temp<36 C (96.8 F) or >38.3 C: No SBP <90 or MAP <65 mmHG: No New Acute Mental Status Change: No Is the patient on CPAP, BIPAP,: No Physician Orders Gallbladder (06/06/25 13:02) Heplock Iv (06/06/25 ) Ceftriaxone 1gm/50ml (Rocephin) (06/07/25 09:00) Metronidazole 500mg/100ml (Flagyl 500mg/ (06/06/25 15:15) Chest Xray 1 View (06/06/25 15:04) Pantoprazole (Protonix) (06/06/25 15:15) Pantoprazole (Protonix) (06/07/25 10:00) Admit (06/06/25 15:04) Ondansetron Hcl (Zofran) (06/06/25 15:15) Complete Blood Count (06/07/25 04:00) Npo (Nothing By Mouth) Diet (06/06/25 Dinner) Condition: Stable (06/06/25 15:04) Bedrest With Bathroom Privileg (06/06/25 15:04) Morphine Sulfate Injection (06/06/25 15:15) Sodium Chloride 0.9% (06/06/25 15:15) Type And Screen (06/06/25 15:04) Comprehensive Metabolic Panel (06/07/25 04:00) Vital Signs Date Time Temp Pulse Resp B/P (MAP) Pulse Ox O2 Delivery O2 Flow Rate FiO2 06/06/25 12:59 99 18 100 Room Air 06/06/25 12:59 97.4 99 16 144/97 (113) 100 97.4 06/06/25 12:51 97.4 99 16 144/97 100 97.4 Laboratory Tests Test 06/06/25 13:43 White Blood Count 7.5 10^3/uL (4.4-10.8) Medications Medications Dose Ordered Sig/Romulo Route Start Time Stop Time Status Last Admin Dose Admin Ketorolac Tromethamine 60 mg ONCE ONCE IM 06/06/25 13:15 06/06/25 13:16 DC 06/06/25 13:17 60 MG Sodium Chloride 1,000 ml @ 1,000 mls/hr Q1H ONCE IV 06/06/25 14:00 06/06/25 14:59 DC 06/06/25 14:12 1,000 MLS/HR Assessment/Plan Assessment/Plan Assessment Acute cholecystitis Transaminitis Plan Admit the patient to [facility] to the hospitalist NPO Surgical consultation Rocephin/Flagyl Maintenance IV fluids Pain management Continue treatment per orders. Plan discussed with: Patient My Orders Orders - PAZDONA STILESTono Procedure Category Date Status Time Ceftriaxone 1gm/50ml PHA 06/07/25 Logged (Rocephin) 09:00 Metronidazole PHA 06/06/25 Logged 500mg/100ml (Flagyl 15:15 Chest Xray 1 View XY 06/06/25 Resulted 15:04 Pantoprazole PHA 06/06/25 Logged (Protonix) 15:15 Pantoprazole PHA 06/07/25 Logged (Protonix) 10:00 Admit ADMIT 06/06/25 Transmitted 15:04 Ondansetron Hcl PHA 06/06/25 Logged (Zofran) 15:15 Complete Blood Count LAB 06/07/25 Verified 04:00 Npo (Nothing By DIET 06/06/25 Transmitted Mouth) Diet Dinner Condition: Stable NAVDEEP 06/06/25 In Process 15:04 Bedrest With Bathroom NAVDEEP 06/06/25 In Process Privileg 15:04 Morphine Sulfate PHA 06/06/25 Logged Injection 15:15 Sodium Chloride 0.9% PHA 06/06/25 Logged 15:15 Type And Screen BBK 06/06/25 In Process 15:04 Comprehensive LAB 06/07/25 Verified Metabolic Panel 04:00 Date of Service: Jun 06, 2025 Billing Provider: DONA PAZ Common Visit Codes: [id number] INP/OBS CARE (HIGH) DONA PAZ Jun 06, 2025 16:43
[2025-06-06] MEDS: PANTOPRAZOLE 40 MG/10 ML VIAL INJ IV ONE (17:10)
[2025-06-06] MEDS: ONDANSETRON HCL 4 MG/2 ML VIAL IV PRN (17:11)
[2025-06-06] MEDS: MORPHINE SULFATE 4 MG/ML SYR/VIAL IV PRN (17:12)
[2025-06-06 20:32] VITALS: RESP 16
[2025-06-06 20:53] VITALS: BP 123/83; PULSE 67; RESP 19; TEMP 98.3; O2SAT 97
--- NOTE | 2025-06-06 23:13 | DVHINCON2 ---
Consultation - Surgical Date Seen: Jun 06, 2025 Referring Physician Reason for Consultation Acute cholecystitis History of Present Illness History of Present Illness Ms. Duarte is a 21-year-old female who presented to the ED with right upper quadrant that is associated with nausea but no vomiting. The pain has been present since earlier today, and is intense. She has had this pain before, having multiple episodes within the last month. She has not noted any a particular foods that trigger the pain. Denies fevers, chills, acholic stools, changes in urinary or stooling habits. Past Medical/Surgical History Past Medical/Surgical History PMH endometriosis PSH tubal ligation, uterine ablation Allergies and medications Allergies: Coded Allergies: Acetaminophen (Verified Allergy, Unknown, 03/04/23) Codeine (Verified Allergy, Unknown, 03/04/23) Penicillins (Verified Allergy, Unknown, 03/04/23) Home Meds Active Scripts Ibuprofen Micronized (Ibuprofen) 800 Mg Tab, 800 MG PO Q8HPRN PRN, #30 TAB Prov:RUBI LYNN DO 04/19/24 Review of systems Review of Systems: Deferred Examination Vital signs Vital Signs Date Time Temp Pulse Resp B/P (MAP) Pulse Ox O2 Delivery O2 Flow Rate FiO2 06/06/25 20:53 98.3 67 19 123/83 (96) 97 98.3 06/06/25 20:32 Room Air* 0 21 21 Medications Current Medications Medications (Trade) Dose Ordered Sig/Romulo Route PRN Reason Start Time Stop Time Status Last Admin Ceftriaxone Sodium 50 ml @ 100 mls/hr DAILY@09 IV 06/07/25 09:00 06/06/25 19:32 DC Metronidazole 100 ml @ 100 mls/hr Q8HR IV 06/06/25 15:15 06/06/25 19:32 DC 06/06/25 17:12 Pantoprazole Sodium (Protonix) 40 mg DAILY IV 06/07/25 10:00 06/06/25 19:24 DC Ondansetron HCl (Zofran) 4 mg Q4HP PRN IV NAUSEA / VOMITING 06/06/25 15:15 06/06/25 19:32 DC 06/06/25 17:11 Morphine Sulfate 2 mg Q4HPRN PRN IV SEVERE PAIN (7-10 PAIN SCALE) 06/06/25 15:15 UNV Morphine Sulfate 2 mg Q4HPRN PRN IV SEVERE PAIN (7-10 PAIN SCALE) 06/06/25 17:00 06/06/25 19:32 DC 06/06/25 17:12 Laboratory Labs Test 06/06/25 15:25 06/06/25 13:43 06/06/25 13:22 Range/Units Prothrombin Time 11.1 9.3-11.8 sec Prothrombin Time INR 1.05 0.9-1.15 Activated Partial Thromboplast Time 27.4 24.5-34.5 SEC White Blood Count 7.5 4.4-10.8 10^3/uL Red Blood Count 4.40 4.0-5.20 10^6/uL Hemoglobin 13.6 12.2-16.2 g/dL Hematocrit 39.8 36.0-46.0 % Mean Corpuscular Volume 90.3 80.0-100.0 fL Mean Corpuscular Hemoglobin 30.9 28.0-32.0 pg Mean Corpuscular Hemoglobin Concent 34.3 32.0-36.0 g/dL Red Cell Distribution Width 13.0 11.8-14.3 % Platelet Count 240 140-450 10^3/uL Mean Platelet Volume 8.6 6.9-10.8 fL Neutrophils (%) (Auto) 70.4 37.0-80.0 % Lymphocytes (%) (Auto) 19.6 10.0-50.0 % Monocytes (%) (Auto) 4.6 0.0-12.0 % Eosinophils (%) (Auto) 4.9 0.0-7.0 % Basophils (%) (Auto) 0.5 0.0-2.0 % Neutrophils # (Auto) 5.3 1.6-8.6 10 ^3/uL Lymphocytes # (Auto) 1.5 0.4-5.4 10 ^3/uL Monocytes # (Auto) 0.3 0-1.3 10 ^3/uL Eosinophils # (Auto) 0.4 0-0.8 10 ^3/uL Basophils # (Auto) 0 0-0.2 10 ^3/uL Nucleated Red Blood Cells 0.0 % Sodium Level 141 136-145 mmol/L Potassium Level 4.1 3.5-5.1 mmol/L Chloride Level 104 98-107 mmol/L Carbon Dioxide Level 25 20-31 mmol/L Anion Gap 12 5-15 Blood Urea Nitrogen 8 L 9-23 mg/dL Creatinine 0.67 0.550-1.02 mg/dL Glomerular Filtration Rate Calc 122 >90 mL/min BUN/Creatinine Ratio 11.9 10.0-20.0 Serum Glucose 88 74-106 mg/dL Calcium Level 9.7 8.7-10.4 mg/dL Total Bilirubin 3.1 H 0.2-1.0 mg/dL Aspartate Amino Transferase (AST) 345 H 13-40 U/L Alanine Aminotransferase (ALT) 499 H 7-40 U/L Alkaline Phosphatase 160 H 46-116 U/L Total Protein 6.5 5.7-8.2 g/dL Albumin 4.3 3.2-4.8 g/dL Lipase 35 12-53 U/L Urine Color [place] H Yellow Urine Clarity Clear Clear Urine pH 6.5 5.0-9.0 Urine Specific [place] 1.020 1.001-1.035 Urine Protein Negative Negative Urine Ketones Trace Negative Urine Blood Negative Negative /uL Urine Nitrite Negative Negative Urine Bilirubin 1+ H Negative Urine Urobilinogen Normal Negative mg/dL Urine Leukocyte Esterase Negative Negative /uL Urine RBC 1 0 - 4 /hpf Urine Microscopic WBC 1 0-5 /HPF Urine Squamous Epithelial Cells Few <5 /hpf Urine Calcium Oxalate Crystals Few None Seen Urine Bacteria Few H None Seen /hpf Urine Glucose Normal Normal mg/dL Urine Test Negative Negative Examination: GENERAL:Normal, HEENT:Abnormal (Scleral icterus positive), ABDOMEN:Abnormal (Nondistended, soft, depressible, exquisite right upper quadrant tenderness, no rebound, no guarding) Problem List/Assessment/Plan Problems: (1) Choledocholithiasis (2) Cholelithiasis with acute cholecystitis Assessment and Plan Ms Duarte is a 29-year-old female who presented with acute cholecystitis and choledocholithiasis as evidenced by stones within the gallbladder wall lumen on ultrasound, and exquisite right upper quadrant pain on physical examination. Choledocholithiasis is evident by patient has scleral icterus, elevated total bilirubin level to 3.1 and a dilated CBD at 9.9 mm. For this reason patient would require an ERCP prior to cholecystectomy. Given that ERCP are not perfor med in the hospital, she will benefit from transferred for higher level care. 1. Transferred due to choledocholithiasis Plan discussed with Plan discussed with: Patient Visit Coding Surgery Date of Service if different f: Jun 06, 2025 Billing Provider: PEDRO SANCHEZ MD Surgery Visit Codes: [id number] - INP CONSULT <110 MIN PEDRO SANCHEZ MD Jun 06, 2025 23:13
[2025-06-07] MEDS ORDERED: PANTOPRAZOLE 40 MG/10 ML VIAL INJ IV SCH (10:00)
== END 2025-06-06 19:36 | disposition short-term general hospital (02) ==
LOC: ER 12:50 → OVERFLOW 15:04 → UNDOADMIN 15:04 → UNDODISIN 19:30 → ER 19:36
DX: K80.50 Calculus of bile duct without cholangitis or cholecystitis without obstruction (principal); R74.01 Elevation of levels of liver transaminase levels; Z98.890 Other specified postprocedural states; Z88.0 Allergy status to penicillin; Z88.5 Allergy status to narcotic agent; Z88.8 Allergy status to other drugs, medicaments and biological substances
CPT/HCPCS: 36415 ×2; 71045 ×2; 76705 ×2; 80053 ×2; 81001 ×2; 81025 ×2; 83690 ×2; 85025 ×2; 85610 ×2; 85730 ×2; 86850 ×2; 86900 ×2; 86901 ×2; 96361 ×2; 96365 ×2; 96372 ×2; 96375 ×2; 99285; G0378; J0696; J1885 ×2; J2270; J2405 ×2; J2470 ×2; J3490 ×2